=== PATIENT | male | born 1995 | race Caucasian/White ===

== ENCOUNTER 2017-07-06 22:27 | Emergency (ER) | payer MEDICAID, OTHER ==
[~2017-07-06] VITALS: Ht 162.6 cm; Wt 59.0 kg
[2017-07-06 22:36] VITALS: BP 118/81
--- NOTE | 2017-07-06 22:38 | NUR ---
PATIENT PRESENTS TO ED WITH RIGHT HAND PAIN 2/10. PT REQUESTING WORK CLEARANCE. CMS INTACT. ROM POSITIVE. MINOR RIGHT HAND CLEANER SIGNS COMPARED TO LEFT. DENIES N/V/D; SKIN IS PINK/WARM/DRY; AAOX4 WITH EVEN AND STEADY GAIT; LUNGS CLEAR BL; HR EVEN AND REGULAR; PT DENIES ANY FEVER, CP, SOB, OR COUGH AT THIS TIME; PATIENT STATES PAIN OF 0/10 AT THIS TIME; VSS; PATIENT POSITIONED FOR COMFORT; HOB ELEVATED; BEDRAILS UP X1; BED DOWN. ER MD MADE AWARE OF PT STATUS. CONTINUE TO MONITOR.
--- NOTE | 2017-07-06 22:40 | NUR ---
PT AMBULATED TO ER BED 08
[2017-07-06 23:19] VITALS: BP 120/62
--- NOTE | 2017-07-06 23:19 | NUR ---
Patient discharged with v/s stable. Written and verbal after care instructions given and explained. Patient verbalized understanding. Ambulatory with steady gait. All questions addressed prior to discharge. Advised to follow up with PMD.
== END 2017-07-06 23:19 | disposition home or self-care (01) ==
LOC: MED 22:27
DX: S63.91XA Sprain of unspecified part of right wrist and hand, initial encounter (principal); W01.0XXA Fall on same level from slipping, tripping and stumbling without subsequent striking against object, initial encounter; Y93.89 Activity, other specified; Y92.89 Other specified places as the place of occurrence of the external cause; Y99.8 Other external cause status
CPT/HCPCS: 73130; 99284; Q0092

== ENCOUNTER 2019-04-04 08:40 | Emergency (ER) | payer MEDICAID ==
[~2019-04-04] VITALS: Ht 157.5 cm; Wt 63.6 kg
[2019-04-04 08:45] VITALS: BP 124/93
[2019-04-04 08:54] VITALS: BP 124/93
--- NOTE | 2019-04-04 09:01 | NUR ---
pt bib mc/pd c/o lt side face pain s/p mec fall by mc/pd. no loc/ko, 2 small abrasion to lt upper cheek and forehead. PT DENIES N/V/D; AAOX4, PERRL, WITH EVEN AND STEADY GAIT; LUNGS CLEAR BL, BREATHING UNLABORED; HR EVEN AND REGULAR, BL PERIPHERAL PULSES PRESENT; BS ACTIVE X4, NO TENDERNESS TO PALPATION. PT DENIES ANY FEVER, CP, SOB, OR COUGH AT THIS TIME; PT STATES 5/10 PAIN AT THIS TIME; VSS; PATIENT POSITIONED FOR COMFORT; HOB ELEVATED; BEDRAILS UP X2; BED DOWN.
--- NOTE | 2019-04-04 09:05 | NUR ---
er md dr ortega at [facility] [place]
[2019-04-04] MEDS ORDERED: NEOMYCIN/POLYMYXIN/BACITRACIN 0.9 GM/1 PKT TP ONE (09:10)
--- NOTE | 2019-04-04 09:17 | NUR ---
NEOSPORIN BEING APPLIED BY ELENA AKERS
--- NOTE | 2019-04-04 09:20 | NUR ---
APPLIED NEOSPORIN TO LEFT FOREHEAD AND LEFT UPPER CHEEK
--- NOTE | 2019-04-04 09:20 | NUR ---
Patient discharged with v/s stable. Written and verbal after care instructions given and explained. Patient alert, oriented and verbalized understanding of instructions. Police with in custody. All questions addressed prior to discharge. ID band removed. Patient advised to follow up with PMD. NO Rx given. Patient educated on indication of medication including possible reaction and side effects. Opportunity to ask questions provided and answered.
== END 2019-04-04 09:20 ==
LOC: MED 08:40
DX: S00.81XA Abrasion of other part of head, initial encounter (principal); Z02.89 Encounter for other administrative examinations; Y04.8XXA Assault by other bodily force, initial encounter; Y93.89 Activity, other specified; Y92.89 Other specified places as the place of occurrence of the external cause; Y99.8 Other external cause status
CPT/HCPCS: 99283

== ENCOUNTER 2020-06-06 05:29 | Emergency (ER) | payer MEDICAID, OTHER ==
[~2020-06-06] VITALS: Ht 162.6 cm; Wt 59.0 kg
[2020-06-06 05:35] VITALS: BP 144/75
--- NOTE | 2020-06-06 05:35 | NUR ---
TO BED AMBULATORY
--- NOTE | 2020-06-06 05:39 | NUR ---
Dr. Price examining patient.
[2020-06-06 05:51] VITALS: BP 144/75
--- NOTE | 2020-06-06 05:51 | NUR ---
PATIENT ELOPED FROM FACILITY. DISCHARGE INSTRUCTIONS NOT GIVEN TO PATIENT. DR. SESAY NOTIFIED.
== END 2020-06-06 05:51 | disposition left against medical advice (07) ==
LOC: MED 05:29
DX: M25.562 Pain in left knee (principal)
CPT/HCPCS: 99281

== ENCOUNTER 2022-07-22 23:55 | Emergency (ER) | payer OTHER ==
[~2022-07-22] VITALS: Ht 162.6 cm; Wt 59.0 kg
[2022-07-23 00:27] VITALS: BP 117/80
[2022-07-23 03:38] VITALS: BP 117/80
--- NOTE | 2022-07-23 03:39 | NUR ---
PT AMBULATE TO ROOM 7
--- NOTE | 2022-07-23 04:16 | NUR ---
Patient being evaluated by physician
--- NOTE | 2022-07-23 04:18 | NUR ---
DR ALY AT BEDSIDE
[2022-07-23] MEDS ORDERED: CEPH-588 PO (04:27)
[2022-07-23] MEDS ORDERED: DIPH25TA53 PO (04:27)
--- NOTE | 2022-07-23 04:47 | NUR ---
Patient discharged with v/s stable. Written and verbal after care instructions given and explained. Patient alert, oriented and verbalized understanding of instructions. Ambulatory with steady gait. All questions addressed prior to discharge. ID band removed. Patient advised to follow up with PMD. Rx of Benadryl and Keflex given. Patient educated on indication of medication including possible reaction and side effects. Opportunity to ask questions provided and answered.
== END 2022-07-23 04:47 | disposition home or self-care (01) ==
LOC: MED 23:55
DX: L03.213 Periorbital cellulitis (principal); Z79.899 Other long term (current) drug therapy
CPT/HCPCS: 99283